=== PATIENT | male | born 1965 | race African-American/Black ===

== ENCOUNTER 2021-07-19 12:22 | Inpatient (IN) | payer OTHER ==
[2021-07-19 14:53] VITALS: BMI 26.6
[2021-07-19] MEDS ORDERED: LOPERAMIDE HCL 2 MG CAPSULE PO PRN (15:44)
[2021-07-19] MEDS ORDERED: METHOCARBAMOL 500 MG TABLET PO PRN (15:44)
[2021-07-19] MEDS ORDERED: BISMUTH SUBSALICYLATE 524 MG/30 ML PO PRN (15:44)
[2021-07-19] MEDS ORDERED: BENZOCAINE/MENTHOL (CHLORASEPTIC ) LOZENGE MM PRN (15:44)
[2021-07-19] MEDS ORDERED: ONDANSETRON *ODT* 4 MG TABLET SL PRN (15:44)
[2021-07-19] MEDS ORDERED: MAGNESIUM HYDROX 2400MG/30ML ORAL SUSPENSION 30 ML CUP PO PRN (15:44)
[2021-07-19] MEDS ORDERED: DICYCLOMINE HCL 10 MG CAPSULE PO PRN (15:44)
[2021-07-19] MEDS ORDERED: ACETAMINOPHEN 325 MG TABLET (FP) PO PRN (15:44)
[2021-07-19] MEDS ORDERED: MAGNESIUM CITRATE 300 ML BOTTLE PO PRN (15:44)
[2021-07-19] MEDS ORDERED: chlordiazePOXIDE HCL 25 MG CAPSULE PO PRN (15:44)
[2021-07-19] MEDS ORDERED: MAG HYDROX/AL HYDROX/SIMETH 30 ML UNIT-DOSE CUP PO PRN (15:44)
[2021-07-19] MEDS ORDERED: DIVALPROEX NA *ER* EXTEND REL 500 MG TABLET.SA (FP) PO ONE (17:26)
[2021-07-19] MEDS ORDERED: risperiDONE 2 MG TABLET PO ONE (17:26)
[2021-07-19] MEDS: chlordiazePOXIDE HCL 25 MG CAPSULE PO SCH ×2 (18:03→22:19)
[2021-07-19] MEDS: hydrOXYzine PAMOATE 25 MG CAPSULE (FP) PO SCH ×2 (18:03→22:19)
[2021-07-19] MEDS: THIAMINE HCL 100 MG TABLET (FP) PO SCH (22:19)
[2021-07-19] MEDS: MELATONIN 5 MG TABLETS PO SCH (22:19)
[2021-07-20] MEDS: chlordiazePOXIDE HCL 25 MG CAPSULE PO SCH ×4 (05:58→22:40)
[2021-07-20] MEDS: hydrOXYzine PAMOATE 25 MG CAPSULE (FP) PO SCH ×5 (06:00→22:40)
[2021-07-20] MEDS: ACETAMINOPHEN 325 MG TABLET (FP) PO PRN (07:28)
[2021-07-20] MEDS: PRENATAL VITAMINS W/ FOLIC ACID TABLET (FP) PO SCH (10:11)
[2021-07-20] MEDS: NICOTINE 21 MG/24 HOURS TOPICAL PATCH TD SCH (10:11)
[2021-07-20 10:32] LABS: URINE APPEARANCE CLEAR; URINE BILIRUBIN NEGATIVE (NEGATIVE); URINE COLOR YELLOW; URINE GLUCOSE (UA) NEGATIVE (NEGATIVE); URINE KETONE TRACE (NEGATIVE); URINE LEUK ESTERASE NEGATIVE (NEGATIVE); URINE NITRITE NEGATIVE (NEGATIVE); URINE PROTEIN NEGATIVE (NEGATIVE)
[2021-07-20] MEDS: risperiDONE 2 MG TABLET PO SCH ×2 (10:40→22:44)
[2021-07-20] MEDS: SERTRALINE HCL 50 MG TABLET (FP) PO SCH (10:40)
[2021-07-20 10:45] LABS: HEMATOCRIT 37.2 % (35.4-49); HEMOGLOBIN 11.9 GM/dL (11.7-16.9); MCH 30.1 pg (25.7-33.7); MEAN CELL VOLUME 94.2 fl (80-96); MEAN PLT VOLUME 10.2 fl (7.5-11.1); PLATELET COUNT 238 10^3/uL (134-434); RBC 3.95 M/mm3 (4.00-5.60); RDW 14.9 % (11.9-15.9); WHITE BLOOD COUNT 8.1 K/mm3 (4.0-10.0)
[2021-07-20 10:59] LABS: ALBUMIN 3.5 g/dl (3.4-5.0); BLOOD UREA NITROGEN 16.4 mg/dL (7-18); CALCIUM 8.8 mg/dL (8.5-10.1)
[2021-07-20 11:03] LABS: CREATININE 0.8 mg/dL (0.55-1.3)
[2021-07-20 11:04] LABS: BILIRUBIN,TOTAL 0.3 mg/dL (0.2-1); TOT PROT 7.1 g/dl (6.4-8.2)
[2021-07-20] MEDS: DIVALPROEX NA *ER* EXTEND REL 500 MG TABLET.SA (FP) PO SCH ×2 (11:48→22:45)
[2021-07-20] MEDS: GABAPENTIN 300 MG CAPSULE PO SCH ×2 (13:24→22:45)
[2021-07-20] MEDS: amLODIPine BESYLATE 10 MG TABLET (FP) PO SCH (13:24)
[2021-07-20] MEDS: IBUPROFEN 400 MG TABLET (FP) PO PRN (20:36)
[2021-07-20] MEDS: MELATONIN 5 MG TABLETS PO SCH (22:44)
[2021-07-20] MEDS: THIAMINE HCL 100 MG TABLET (FP) PO SCH (22:44)
[2021-07-21] MEDS: chlordiazePOXIDE HCL 25 MG CAPSULE PO SCH ×4 (05:42→22:11)
[2021-07-21] MEDS: GABAPENTIN 300 MG CAPSULE PO SCH ×3 (05:42→22:11)
[2021-07-21] MEDS: hydrOXYzine PAMOATE 25 MG CAPSULE (FP) PO SCH ×5 (05:44→22:11)
[2021-07-21] MEDS: IBUPROFEN 400 MG TABLET (FP) PO PRN (05:50)
[2021-07-21] MEDS: SERTRALINE HCL 50 MG TABLET (FP) PO SCH (10:24)
[2021-07-21] MEDS: risperiDONE 2 MG TABLET PO SCH ×2 (10:24→22:12)
[2021-07-21] MEDS: amLODIPine BESYLATE 10 MG TABLET (FP) PO SCH (10:24)
[2021-07-21] MEDS: PRENATAL VITAMINS W/ FOLIC ACID TABLET (FP) PO SCH (10:24)
[2021-07-21] MEDS: DIVALPROEX NA *ER* EXTEND REL 500 MG TABLET.SA (FP) PO SCH ×2 (10:24→22:13)
[2021-07-21] MEDS: NICOTINE 21 MG/24 HOURS TOPICAL PATCH TD SCH (10:25)
[2021-07-21] MEDS: MELATONIN 5 MG TABLETS PO SCH (22:11)
[2021-07-21] MEDS: THIAMINE HCL 100 MG TABLET (FP) PO SCH (22:12)
[2021-07-22] MEDS ORDERED: chlordiazePOXIDE HCL 10 MG CAPSULE PO PRN
[2021-07-22] MEDS: hydrOXYzine PAMOATE 25 MG CAPSULE (FP) PO SCH ×5 (05:39→23:09)
[2021-07-22] MEDS: GABAPENTIN 300 MG CAPSULE PO SCH ×3 (05:39→23:09)
[2021-07-22] MEDS: chlordiazePOXIDE HCL 10 MG CAPSULE PO SCH ×4 (05:39→23:11)
[2021-07-22] MEDS: IBUPROFEN 400 MG TABLET (FP) PO PRN ×2 (07:07→17:52)
[2021-07-22] MEDS: DIVALPROEX NA *ER* EXTEND REL 500 MG TABLET.SA (FP) PO SCH ×2 (10:11→23:11)
[2021-07-22] MEDS: NICOTINE 21 MG/24 HOURS TOPICAL PATCH TD SCH (10:12)
[2021-07-22] MEDS: SERTRALINE HCL 50 MG TABLET (FP) PO SCH (10:12)
[2021-07-22] MEDS: risperiDONE 2 MG TABLET PO SCH ×2 (10:12→23:09)
[2021-07-22] MEDS: PRENATAL VITAMINS W/ FOLIC ACID TABLET (FP) PO SCH (10:12)
[2021-07-22] MEDS: amLODIPine BESYLATE 10 MG TABLET (FP) PO SCH (10:12)
[2021-07-22] MEDS: ACETAMINOPHEN 325 MG TABLET (FP) PO PRN (11:52)
[2021-07-22] MEDS: MELATONIN 5 MG TABLETS PO SCH (23:09)
[2021-07-22] MEDS: THIAMINE HCL 100 MG TABLET (FP) PO SCH (23:10)
[2021-07-23] MEDS: hydrOXYzine PAMOATE 25 MG CAPSULE (FP) PO SCH ×5 (05:23→22:20)
[2021-07-23] MEDS: GABAPENTIN 300 MG CAPSULE PO SCH ×3 (05:23→22:20)
[2021-07-23] MEDS: chlordiazePOXIDE HCL 10 MG CAPSULE PO SCH ×2 (05:23→17:57)
[2021-07-23] MEDS ORDERED: NICOTINE POLACRILEX 4 MG GUM BUC PRN (09:42)
[2021-07-23] MEDS: SERTRALINE HCL 50 MG TABLET (FP) PO SCH (10:12)
[2021-07-23] MEDS: PRENATAL VITAMINS W/ FOLIC ACID TABLET (FP) PO SCH (10:12)
[2021-07-23] MEDS: risperiDONE 2 MG TABLET PO SCH ×2 (10:12→22:20)
[2021-07-23] MEDS: NICOTINE 21 MG/24 HOURS TOPICAL PATCH TD SCH (10:12)
[2021-07-23] MEDS: DIVALPROEX NA *ER* EXTEND REL 500 MG TABLET.SA (FP) PO SCH ×2 (10:12→22:21)
[2021-07-23] MEDS: amLODIPine BESYLATE 10 MG TABLET (FP) PO SCH (10:12)
[2021-07-23] MEDS: NICOTINE 10 MG CARTRIDGE (INHALER) IH PRN ×3 (10:14→22:21)
[2021-07-23] MEDS: IBUPROFEN 400 MG TABLET (FP) PO PRN (17:59)
[2021-07-23] MEDS: MELATONIN 5 MG TABLETS PO SCH (22:20)
[2021-07-23] MEDS: THIAMINE HCL 100 MG TABLET (FP) PO SCH (22:20)
[2021-07-24] MEDS ORDERED: chlordiazePOXIDE HCL 10 MG CAPSULE PO ONE (05:00)
[2021-07-24] MEDS: GABAPENTIN 300 MG CAPSULE PO SCH (05:44)
[2021-07-24] MEDS: hydrOXYzine PAMOATE 25 MG CAPSULE (FP) PO SCH ×2 (05:45→10:28)
[2021-07-24 09:23] VITALS: BP 128/84; PULSE 75; TEMP 96.9
[2021-07-24] MEDS: SERTRALINE HCL 50 MG TABLET (FP) PO SCH (10:26)
[2021-07-24] MEDS: DIVALPROEX NA *ER* EXTEND REL 500 MG TABLET.SA (FP) PO SCH (10:26)
[2021-07-24] MEDS: NICOTINE 21 MG/24 HOURS TOPICAL PATCH TD SCH (10:26)
[2021-07-24] MEDS: amLODIPine BESYLATE 10 MG TABLET (FP) PO SCH (10:26)
[2021-07-24] MEDS: risperiDONE 2 MG TABLET PO SCH (10:26)
[2021-07-24] MEDS: PRENATAL VITAMINS W/ FOLIC ACID TABLET (FP) PO SCH (10:27)
== END 2021-07-24 11:25 | disposition other institution (70) | DRG 774 ==
LOC: YASAS 12:22 → Y6N 16:56
PROVIDERS: ADMIT Allergy & Immunology; ATTEND Surgery
PROC: HZ2ZZZZ Detoxification Services for Substance Abuse Treatment (ICD-10-PCS; principal; 2021-07-20)
DX: F10.230 Alcohol dependence with withdrawal, uncomplicated (principal); F14.20 Cocaine dependence, uncomplicated; F15.10 Other stimulant abuse, uncomplicated; F17.213 Nicotine dependence, cigarettes, with withdrawal; F25.0 Schizoaffective disorder, bipolar type; F19.282 Other psychoactive substance dependence with psychoactive substance-induced sleep disorder; I10 Essential (primary) hypertension; M54.50 Low back pain, unspecified; G89.29 Other chronic pain
CPT/HCPCS: 36415; 71046-TC-FY; 80053; 80164; 81003; 85027; 86780; 93005; 93010; C9803-CS; U0003; U0005

== ENCOUNTER 2021-07-24 11:29 | Inpatient (IN) | payer OTHER ==
[2021-07-24] MEDS ORDERED: MAG HYDROX/AL HYDROX/SIMETH 30 ML UNIT-DOSE CUP PO PRN (11:57)
[2021-07-24] MEDS ORDERED: hydrOXYzine PAMOATE 25 MG CAPSULE (FP) PO PRN (11:57)
[2021-07-24] MEDS ORDERED: MAGNESIUM HYDROX 2400MG/30ML ORAL SUSPENSION 30 ML CUP PO PRN (11:57)
[2021-07-24] MEDS ORDERED: P-EPHED 60MG/TRIPROLIDI 2.5MG TABLET PO PRN (11:57)
[2021-07-24] MEDS ORDERED: MAGNESIUM CITRATE 300 ML BOTTLE PO PRN (11:57)
[2021-07-24] MEDS ORDERED: guaiFENesin 200 MG/10 ML 10 ML UNIT-DOSE CUPS PO PRN (11:57)
[2021-07-24] MEDS ORDERED: LOPERAMIDE HCL 2 MG CAPSULE PO PRN (11:57)
[2021-07-24] MEDS ORDERED: ACETAMINOPHEN 325 MG TABLET (FP) PO PRN (11:57)
[2021-07-24] MEDS: GABAPENTIN 300 MG CAPSULE PO SCH ×2 (13:30→21:36)
[2021-07-24] MEDS: NICOTINE 10 MG CARTRIDGE (INHALER) IH PRN ×2 (13:31→21:38)
[2021-07-24] MEDS: NICOTINE POLACRILEX 4 MG GUM BUC PRN ×3 (16:18→23:45)
[2021-07-24] MEDS: MELATONIN 5 MG TABLETS PO SCH (21:36)
[2021-07-24] MEDS: DIVALPROEX NA *ER* EXTEND REL 500 MG TABLET.SA (FP) PO SCH (21:37)
[2021-07-24] MEDS: risperiDONE 2 MG TABLET PO SCH (21:38)
[2021-07-24] MEDS: THIAMINE HCL 100 MG TABLET (FP) PO SCH (21:39)
[2021-07-25] MEDS: GABAPENTIN 300 MG CAPSULE PO SCH ×3 (06:32→21:08)
[2021-07-25] MEDS: NICOTINE 10 MG CARTRIDGE (INHALER) IH PRN ×2 (06:33→12:25)
[2021-07-25] MEDS: NICOTINE POLACRILEX 4 MG GUM BUC PRN ×3 (06:54→18:03)
[2021-07-25] MEDS: IBUPROFEN 400 MG TABLET (FP) PO PRN (08:45)
[2021-07-25] MEDS: amLODIPine BESYLATE 10 MG TABLET (FP) PO SCH (09:46)
[2021-07-25] MEDS: SERTRALINE HCL 50 MG TABLET (FP) PO SCH (09:46)
[2021-07-25] MEDS: DIVALPROEX NA *ER* EXTEND REL 500 MG TABLET.SA (FP) PO SCH ×2 (09:46→21:08)
[2021-07-25] MEDS: risperiDONE 2 MG TABLET PO SCH ×2 (09:46→21:08)
[2021-07-25] MEDS: NICOTINE 21 MG/24 HOURS TOPICAL PATCH TD SCH (09:47)
[2021-07-25] MEDS: PRENATAL VITAMINS W/ FOLIC ACID TABLET (FP) PO SCH (09:47)
[2021-07-25] MEDS ORDERED: NICOTINE 7 MG/24 HOURS TOPICAL PATCH TD SCH (10:00)
[2021-07-25] MEDS: MELATONIN 5 MG TABLETS PO SCH (21:07)
[2021-07-25] MEDS: THIAMINE HCL 100 MG TABLET (FP) PO SCH (21:07)
[2021-07-26] MEDS: GABAPENTIN 300 MG CAPSULE PO SCH ×3 (06:25→21:17)
[2021-07-26] MEDS: NICOTINE POLACRILEX 4 MG GUM BUC PRN ×2 (06:26→12:49)
[2021-07-26] MEDS: NICOTINE 10 MG CARTRIDGE (INHALER) IH PRN ×2 (06:26→21:17)
[2021-07-26] MEDS: PRENATAL VITAMINS W/ FOLIC ACID TABLET (FP) PO SCH (09:41)
[2021-07-26] MEDS: risperiDONE 2 MG TABLET PO SCH ×2 (09:42→21:17)
[2021-07-26] MEDS: NICOTINE 21 MG/24 HOURS TOPICAL PATCH TD SCH (09:42)
[2021-07-26] MEDS: amLODIPine BESYLATE 10 MG TABLET (FP) PO SCH (09:42)
[2021-07-26] MEDS: SERTRALINE HCL 50 MG TABLET (FP) PO SCH (09:43)
[2021-07-26] MEDS: DIVALPROEX NA *ER* EXTEND REL 500 MG TABLET.SA (FP) PO SCH ×2 (09:44→21:17)
[2021-07-26] MEDS: IBUPROFEN 400 MG TABLET (FP) PO PRN (16:45)
[2021-07-26] MEDS: MELATONIN 5 MG TABLETS PO SCH (21:16)
[2021-07-26] MEDS: THIAMINE HCL 100 MG TABLET (FP) PO SCH (21:16)
[2021-07-27] MEDS: GABAPENTIN 300 MG CAPSULE PO SCH ×3 (06:23→21:02)
[2021-07-27] MEDS: NICOTINE 10 MG CARTRIDGE (INHALER) IH PRN (06:24)
[2021-07-27] MEDS: NICOTINE POLACRILEX 4 MG GUM BUC PRN ×2 (06:24→13:53)
[2021-07-27] MEDS: PRENATAL VITAMINS W/ FOLIC ACID TABLET (FP) PO SCH (09:56)
[2021-07-27] MEDS: SERTRALINE HCL 50 MG TABLET (FP) PO SCH (09:56)
[2021-07-27] MEDS: NICOTINE 21 MG/24 HOURS TOPICAL PATCH TD SCH (09:56)
[2021-07-27] MEDS: risperiDONE 2 MG TABLET PO SCH ×2 (09:57→21:02)
[2021-07-27] MEDS: amLODIPine BESYLATE 10 MG TABLET (FP) PO SCH (09:57)
[2021-07-27] MEDS: DIVALPROEX NA *ER* EXTEND REL 500 MG TABLET.SA (FP) PO SCH ×2 (09:57→21:02)
[2021-07-27] MEDS: THIAMINE HCL 100 MG TABLET (FP) PO SCH (21:01)
[2021-07-27] MEDS: MELATONIN 5 MG TABLETS PO SCH (21:01)
[2021-07-28 06:59] VITALS: TEMP 97.5
[2021-07-28] MEDS: GABAPENTIN 300 MG CAPSULE PO SCH ×3 (07:19→21:11)
[2021-07-28] MEDS: NICOTINE POLACRILEX 4 MG GUM BUC PRN ×2 (07:20→13:19)
[2021-07-28] MEDS: NICOTINE 10 MG CARTRIDGE (INHALER) IH PRN ×2 (07:20→16:48)
[2021-07-28] MEDS: NICOTINE 21 MG/24 HOURS TOPICAL PATCH TD SCH (10:05)
[2021-07-28] MEDS: risperiDONE 2 MG TABLET PO SCH ×2 (10:05→21:11)
[2021-07-28] MEDS: amLODIPine BESYLATE 10 MG TABLET (FP) PO SCH (10:05)
[2021-07-28] MEDS: DIVALPROEX NA *ER* EXTEND REL 500 MG TABLET.SA (FP) PO SCH ×2 (10:05→23:36)
[2021-07-28] MEDS: SERTRALINE HCL 50 MG TABLET (FP) PO SCH (10:05)
[2021-07-28] MEDS: PRENATAL VITAMINS W/ FOLIC ACID TABLET (FP) PO SCH (10:05)
[2021-07-28] MEDS: MELATONIN 5 MG TABLETS PO SCH (21:11)
[2021-07-28] MEDS: THIAMINE HCL 100 MG TABLET (FP) PO SCH (21:11)
[2021-07-29] MEDS: GABAPENTIN 300 MG CAPSULE PO SCH ×3 (06:29→21:17)
[2021-07-29] MEDS: NICOTINE 21 MG/24 HOURS TOPICAL PATCH TD SCH (09:29)
[2021-07-29] MEDS: amLODIPine BESYLATE 10 MG TABLET (FP) PO SCH (09:30)
[2021-07-29] MEDS: DIVALPROEX NA *ER* EXTEND REL 500 MG TABLET.SA (FP) PO SCH ×2 (09:30→21:18)
[2021-07-29] MEDS: risperiDONE 2 MG TABLET PO SCH ×2 (09:30→21:17)
[2021-07-29] MEDS: SERTRALINE HCL 50 MG TABLET (FP) PO SCH (09:31)
[2021-07-29] MEDS: PRENATAL VITAMINS W/ FOLIC ACID TABLET (FP) PO SCH (09:31)
[2021-07-29] MEDS: NICOTINE 10 MG CARTRIDGE (INHALER) IH PRN ×2 (12:04→15:50)
[2021-07-29] MEDS: NICOTINE POLACRILEX 4 MG GUM BUC PRN ×3 (13:05→21:18)
[2021-07-29] MEDS: THIAMINE HCL 100 MG TABLET (FP) PO SCH (21:17)
[2021-07-29] MEDS: MELATONIN 5 MG TABLETS PO SCH (21:18)
[2021-07-30] MEDS: GABAPENTIN 300 MG CAPSULE PO SCH ×3 (06:12→21:14)
[2021-07-30] MEDS: NICOTINE POLACRILEX 4 MG GUM BUC PRN ×2 (06:13→13:29)
[2021-07-30] MEDS: NICOTINE 10 MG CARTRIDGE (INHALER) IH PRN ×2 (08:40→16:17)
[2021-07-30 09:15] VITALS: BP 132/87; PULSE 87
[2021-07-30] MEDS: PRENATAL VITAMINS W/ FOLIC ACID TABLET (FP) PO SCH (10:03)
[2021-07-30] MEDS: NICOTINE 21 MG/24 HOURS TOPICAL PATCH TD SCH (10:03)
[2021-07-30] MEDS: SERTRALINE HCL 50 MG TABLET (FP) PO SCH (10:04)
[2021-07-30] MEDS: DIVALPROEX NA *ER* EXTEND REL 500 MG TABLET.SA (FP) PO SCH ×2 (10:04→21:13)
[2021-07-30] MEDS: amLODIPine BESYLATE 10 MG TABLET (FP) PO SCH (10:04)
[2021-07-30] MEDS: risperiDONE 2 MG TABLET PO SCH ×2 (10:04→21:14)
[2021-07-30] MEDS: MELATONIN 5 MG TABLETS PO SCH (21:13)
[2021-07-30] MEDS: THIAMINE HCL 100 MG TABLET (FP) PO SCH (21:13)
== END 2021-07-31 02:20 | disposition left against medical advice (07) | DRG 770 ==
LOC: YASAS 11:29 → Y3E 11:30
PROVIDERS: ADMIT Allergy & Immunology; ATTEND Psychiatry & Neurology Pain Medicine
PROC: HZ42ZZZ Group Counseling for Substance Abuse Treatment, Cognitive-Behavioral (ICD-10-PCS; principal; 2021-07-24)
DX: F10.20 Alcohol dependence, uncomplicated (principal); F14.20 Cocaine dependence, uncomplicated; F15.20 Other stimulant dependence, uncomplicated; F17.210 Nicotine dependence, cigarettes, uncomplicated; F25.0 Schizoaffective disorder, bipolar type; I10 Essential (primary) hypertension

== ENCOUNTER 2021-09-02 19:21 | Inpatient (IN) | payer OTHER ==
[2021-09-02 20:09] VITALS: BMI 27.3
[2021-09-02] MEDS ORDERED: P-EPHED 60MG/TRIPROLIDI 2.5MG TABLET PO PRN (20:42)
[2021-09-02] MEDS ORDERED: LOPERAMIDE HCL 2 MG CAPSULE PO PRN (20:42)
[2021-09-02] MEDS ORDERED: MAGNESIUM CITRATE 300 ML BOTTLE PO PRN (20:42)
[2021-09-02] MEDS ORDERED: ONDANSETRON *ODT* 4 MG TABLET SL PRN (20:42)
[2021-09-02] MEDS ORDERED: guaiFENesin 200 MG/10 ML 10 ML UNIT-DOSE CUPS PO PRN (20:42)
[2021-09-02] MEDS ORDERED: MAGNESIUM HYDROX 2400MG/30ML ORAL SUSPENSION 30 ML CUP PO PRN (20:42)
[2021-09-02] MEDS ORDERED: IBUPROFEN 400 MG TABLET (FP) PO PRN (20:42)
[2021-09-02] MEDS ORDERED: BENZOCAINE/MENTHOL (CHLORASEPTIC ) LOZENGE MM PRN (20:42)
[2021-09-02] MEDS ORDERED: DICYCLOMINE HCL 10 MG CAPSULE PO PRN (20:42)
[2021-09-02] MEDS ORDERED: chlordiazePOXIDE HCL 25 MG CAPSULE PO PRN (20:42)
[2021-09-02] MEDS ORDERED: NICOTINE POLACRILEX 2 MG GUM BUC PRN (20:42)
[2021-09-02] MEDS ORDERED: MAG HYDROX/AL HYDROX/SIMETH 30 ML UNIT-DOSE CUP PO PRN (20:42)
[2021-09-02] MEDS ORDERED: ACETAMINOPHEN 325 MG TABLET (FP) PO PRN ×2 (20:42)
[2021-09-02] MEDS: MELATONIN 5 MG TABLETS PO SCH (21:43)
[2021-09-02] MEDS: hydrOXYzine PAMOATE 25 MG CAPSULE (FP) PO PRN (21:43)
[2021-09-02] MEDS: METHOCARBAMOL 500 MG TABLET PO PRN (21:43)
[2021-09-02] MEDS: THIAMINE HCL 100 MG TABLET (FP) PO SCH (21:43)
[2021-09-02] MEDS: amLODIPine BESYLATE 10 MG TABLET (FP) PO SCH (21:43)
[2021-09-02] MEDS: chlordiazePOXIDE HCL 25 MG CAPSULE PO SCH (22:30)
[2021-09-03] MEDS: hydrOXYzine PAMOATE 25 MG CAPSULE (FP) PO PRN (05:35)
[2021-09-03] MEDS: chlordiazePOXIDE HCL 25 MG CAPSULE PO SCH ×4 (05:35→22:31)
[2021-09-03 09:04] LABS: HEMATOCRIT 38.5 % (35.4-49); HEMOGLOBIN 12.8 GM/dL (11.7-16.9); MCH 30.5 pg (25.7-33.7); MCHC 33.4 g/dl (32.0-35.9); MEAN CELL VOLUME 91.6 fl (80-96); MEAN PLT VOLUME 8.7 fl (7.5-11.1); PLATELET COUNT 252 10^3/uL (134-434); RDW 15.1 % (11.9-15.9); WHITE BLOOD COUNT 5.3 K/mm3 (4.0-10.0)
[2021-09-03 09:25] LABS: BLOOD UREA NITROGEN 5.4 mg/dL (7-18); CALCIUM 8.8 mg/dL (8.5-10.1)
[2021-09-03 09:26] LABS: ALBUMIN 3.8 g/dl (3.4-5.0)
[2021-09-03 09:29] LABS: CREATININE 0.8 mg/dL (0.55-1.3)
[2021-09-03 09:30] LABS: BILIRUBIN,TOTAL 0.9 mg/dL (0.2-1); TOT PROT 8.1 g/dl (6.4-8.2)
[2021-09-03] MEDS ORDERED: NICOTINE 21 MG/24 HOURS TOPICAL PATCH TD SCH (10:00)
[2021-09-03] MEDS ORDERED: NICOTINE 14 MG/24 HOURS TOPICAL PATCH TD SCH (10:00)
[2021-09-03] MEDS: PRENATAL VITAMINS W/ FOLIC ACID TABLET (FP) PO SCH (10:11)
[2021-09-03] MEDS: amLODIPine BESYLATE 10 MG TABLET (FP) PO SCH (10:11)
[2021-09-03] MEDS: risperiDONE 2 MG TABLET PO SCH ×2 (12:49→22:31)
[2021-09-03] MEDS: NICOTINE 10 MG CARTRIDGE (INHALER) IH PRN ×2 (12:49→17:39)
[2021-09-03] MEDS: DIVALPROEX SODIUM 250 MG TABLET E.C. PO SCH ×2 (12:49→22:31)
[2021-09-03] MEDS: SERTRALINE HCL 50 MG TABLET (FP) PO SCH (12:49)
[2021-09-03] MEDS: GABAPENTIN 300 MG CAPSULE PO SCH ×2 (15:26→22:32)
[2021-09-03] MEDS: BISMUTH SUBSALICYLATE 524 MG/30 ML PO PRN (17:40)
[2021-09-03] MEDS: MELATONIN 5 MG TABLETS PO SCH (22:32)
[2021-09-03] MEDS: THIAMINE HCL 100 MG TABLET (FP) PO SCH (22:32)
[2021-09-04] MEDS: GABAPENTIN 300 MG CAPSULE PO SCH ×3 (07:22→22:17)
[2021-09-04] MEDS: chlordiazePOXIDE HCL 25 MG CAPSULE PO SCH ×4 (07:22→22:17)
[2021-09-04] MEDS: SERTRALINE HCL 50 MG TABLET (FP) PO SCH (10:17)
[2021-09-04] MEDS: PRENATAL VITAMINS W/ FOLIC ACID TABLET (FP) PO SCH (10:17)
[2021-09-04] MEDS: DIVALPROEX SODIUM 250 MG TABLET E.C. PO SCH ×2 (10:17→22:16)
[2021-09-04] MEDS: amLODIPine BESYLATE 10 MG TABLET (FP) PO SCH (10:17)
[2021-09-04] MEDS: risperiDONE 2 MG TABLET PO SCH ×2 (10:17→22:17)
[2021-09-04] MEDS: NICOTINE 10 MG CARTRIDGE (INHALER) IH PRN ×2 (10:19→22:18)
[2021-09-04] MEDS: hydrOXYzine PAMOATE 25 MG CAPSULE (FP) PO PRN (17:02)
[2021-09-04] MEDS: BISMUTH SUBSALICYLATE 524 MG/30 ML PO PRN (17:32)
[2021-09-04] MEDS: MELATONIN 5 MG TABLETS PO SCH (22:16)
[2021-09-04] MEDS: THIAMINE HCL 100 MG TABLET (FP) PO SCH (22:17)
[2021-09-05] MEDS ORDERED: chlordiazePOXIDE HCL 10 MG CAPSULE PO PRN
[2021-09-05] MEDS: chlordiazePOXIDE HCL 10 MG CAPSULE PO SCH ×4 (05:29→23:26)
[2021-09-05] MEDS: GABAPENTIN 300 MG CAPSULE PO SCH ×3 (05:29→23:24)
[2021-09-05] MEDS: DIVALPROEX SODIUM 250 MG TABLET E.C. PO SCH ×2 (10:15→23:25)
[2021-09-05] MEDS: PRENATAL VITAMINS W/ FOLIC ACID TABLET (FP) PO SCH (10:15)
[2021-09-05] MEDS: hydrOXYzine PAMOATE 25 MG CAPSULE (FP) PO PRN (10:15)
[2021-09-05] MEDS: amLODIPine BESYLATE 10 MG TABLET (FP) PO SCH (10:15)
[2021-09-05] MEDS: risperiDONE 2 MG TABLET PO SCH ×2 (10:16→23:24)
[2021-09-05] MEDS: SERTRALINE HCL 50 MG TABLET (FP) PO SCH (10:17)
[2021-09-05] MEDS: IBUPROFEN 600 MG TABLET (FP) PO PRN (18:33)
[2021-09-05] MEDS: NICOTINE 10 MG CARTRIDGE (INHALER) IH PRN (18:34)
[2021-09-05] MEDS: MELATONIN 5 MG TABLETS PO SCH (23:24)
[2021-09-05] MEDS: METHOCARBAMOL 500 MG TABLET PO PRN (23:25)
[2021-09-05] MEDS: THIAMINE HCL 100 MG TABLET (FP) PO SCH (23:25)
[2021-09-06] MEDS ORDERED: chlordiazePOXIDE HCL 10 MG CAPSULE PO SCH (05:00)
[2021-09-06] MEDS: GABAPENTIN 300 MG CAPSULE PO SCH ×2 (05:29→13:56)
[2021-09-06] MEDS: NICOTINE 10 MG CARTRIDGE (INHALER) IH PRN ×2 (05:29→10:04)
[2021-09-06] MEDS: METHOCARBAMOL 500 MG TABLET PO PRN (06:59)
[2021-09-06] MEDS: IBUPROFEN 600 MG TABLET (FP) PO PRN (06:59)
[2021-09-06] MEDS: SERTRALINE HCL 50 MG TABLET (FP) PO SCH (10:03)
[2021-09-06] MEDS: DIVALPROEX SODIUM 250 MG TABLET E.C. PO SCH (10:03)
[2021-09-06] MEDS: risperiDONE 2 MG TABLET PO SCH (10:03)
[2021-09-06] MEDS: amLODIPine BESYLATE 10 MG TABLET (FP) PO SCH (10:03)
[2021-09-06] MEDS: PRENATAL VITAMINS W/ FOLIC ACID TABLET (FP) PO SCH (10:03)
[2021-09-06 12:45] VITALS: BP 145/93; PULSE 90; TEMP 97.3
[2021-09-07] MEDS ORDERED: chlordiazePOXIDE HCL 10 MG CAPSULE PO ONE (05:00)
== END 2021-09-06 14:15 | disposition other institution (70) | DRG 774 ==
LOC: YASAS 19:21 → Y3N 21:11
PROVIDERS: ADMIT Allergy & Immunology; ATTEND Surgery
PROC: HZ2ZZZZ Detoxification Services for Substance Abuse Treatment (ICD-10-PCS; principal; 2021-09-02)
DX: F10.230 Alcohol dependence with withdrawal, uncomplicated (principal); F14.20 Cocaine dependence, uncomplicated; F17.210 Nicotine dependence, cigarettes, uncomplicated; F25.0 Schizoaffective disorder, bipolar type; F10.280 Alcohol dependence with alcohol-induced anxiety disorder; F10.282 Alcohol dependence with alcohol-induced sleep disorder; F10.24 Alcohol dependence with alcohol-induced mood disorder; I10 Essential (primary) hypertension; M54.50 Low back pain, unspecified; G89.29 Other chronic pain; Z91.81 History of falling; Z86.19 Personal history of other infectious and parasitic diseases; Z86.11 Personal history of tuberculosis; Z91.14 Patient's other noncompliance with medication regimen
CPT/HCPCS: 36415; 80053; 85027; 86780; C9803-CS; U0003; U0005

== ENCOUNTER 2021-11-01 14:13 | Inpatient (IN) | payer OTHER ==
[2021-11-01 15:40] VITALS: BMI 25.9
[2021-11-01] MEDS ORDERED: MAG HYDROX/AL HYDROX/SIMETH 30 ML UNIT-DOSE CUP PO PRN (16:53)
[2021-11-01] MEDS ORDERED: MAGNESIUM CITRATE 300 ML BOTTLE PO PRN (16:53)
[2021-11-01] MEDS ORDERED: BISMUTH SUBSALICYLATE 524 MG/30 ML PO PRN (16:53)
[2021-11-01] MEDS ORDERED: IBUPROFEN 400 MG TABLET (FP) PO PRN (16:53)
[2021-11-01] MEDS ORDERED: LOPERAMIDE HCL 2 MG CAPSULE PO PRN (16:53)
[2021-11-01] MEDS ORDERED: ACETAMINOPHEN 325 MG TABLET (FP) PO PRN ×2 (16:53)
[2021-11-01] MEDS ORDERED: BENZOCAINE/MENTHOL (CHLORASEPTIC ) LOZENGE MM PRN (16:53)
[2021-11-01] MEDS ORDERED: DICYCLOMINE HCL 10 MG CAPSULE PO PRN (16:53)
[2021-11-01] MEDS ORDERED: ONDANSETRON *ODT* 4 MG TABLET SL PRN (16:53)
[2021-11-01] MEDS ORDERED: MAGNESIUM HYDROX 2400MG/30ML ORAL SUSPENSION 30 ML CUP PO PRN (16:53)
[2021-11-01] MEDS: chlordiazePOXIDE HCL 25 MG CAPSULE PO PRN ×2 (18:37→22:33)
[2021-11-01] MEDS: hydrOXYzine PAMOATE 25 MG CAPSULE (FP) PO SCH ×2 (18:37→22:32)
[2021-11-01] MEDS: NICOTINE POLACRILEX 4 MG GUM BUC PRN ×2 (18:43→22:35)
[2021-11-01] MEDS: THIAMINE HCL 100 MG TABLET (FP) PO SCH (22:32)
[2021-11-01] MEDS: MELATONIN 5 MG TABLETS PO SCH (22:33)
[2021-11-01] MEDS: chlordiazePOXIDE HCL 25 MG CAPSULE PO SCH (23:21)
[2021-11-02] MEDS: chlordiazePOXIDE HCL 25 MG CAPSULE PO SCH ×4 (04:55→22:13)
[2021-11-02] MEDS: hydrOXYzine PAMOATE 25 MG CAPSULE (FP) PO SCH ×5 (05:04→22:14)
[2021-11-02] MEDS: NICOTINE 10 MG CARTRIDGE (INHALER) IH PRN ×2 (05:46→18:02)
[2021-11-02] MEDS: IBUPROFEN 600 MG TABLET (FP) PO PRN (07:49)
[2021-11-02 09:47] LABS: CALCIUM 9.1 mg/dL (8.5-10.1)
[2021-11-02 09:48] LABS: ALBUMIN 3.9 g/dl (3.4-5.0); BLOOD UREA NITROGEN 17.1 mg/dL (7-18)
[2021-11-02 09:51] LABS: CREATININE 0.8 mg/dL (0.55-1.3)
[2021-11-02 09:52] LABS: BILIRUBIN,TOTAL 0.2 mg/dL (0.2-1); TOT PROT 7.4 g/dl (6.4-8.2)
[2021-11-02 09:56] LABS: HEMATOCRIT 37.5 % (35.4-49); HEMOGLOBIN 12.1 GM/dL (11.7-16.9); MCH 30.5 pg (25.7-33.7); MCHC 32.2 g/dl (32.0-35.9); MEAN CELL VOLUME 94.6 fl (80-96); MEAN PLT VOLUME 10.1 fl (7.5-11.1); PLATELET COUNT 323 10^3/uL (134-434); RBC 3.96 M/mm3 (4.00-5.60); RDW 16.1 % (11.9-15.9)
[2021-11-02] MEDS: METHOCARBAMOL 500 MG TABLET PO PRN (10:23)
[2021-11-02] MEDS: PRENATAL VITAMINS W/ FOLIC ACID TABLET (FP) PO SCH (10:23)
[2021-11-02] MEDS: amLODIPine BESYLATE 10 MG TABLET (FP) PO SCH (10:24)
[2021-11-02] MEDS: risperiDONE 2 MG TABLET PO SCH ×2 (10:25→22:12)
[2021-11-02] MEDS: DIVALPROEX NA *ER* EXTEND REL 500 MG TABLET.SA (FP) PO SCH ×2 (10:27→22:14)
[2021-11-02] MEDS: SERTRALINE HCL 50 MG TABLET (FP) PO SCH (10:27)
[2021-11-02] MEDS: NICOTINE 14 MG/24 HOURS TOPICAL PATCH TD SCH (10:28)
[2021-11-02] MEDS: NICOTINE POLACRILEX 4 MG GUM BUC PRN ×2 (11:00→19:56)
[2021-11-02] MEDS: GABAPENTIN 300 MG CAPSULE PO SCH ×2 (13:03→22:12)
[2021-11-02] MEDS: THIAMINE HCL 100 MG TABLET (FP) PO SCH (22:12)
[2021-11-02] MEDS: MELATONIN 5 MG TABLETS PO SCH (22:14)
[2021-11-03] MEDS: chlordiazePOXIDE HCL 25 MG CAPSULE PO SCH ×4 (05:29→22:22)
[2021-11-03] MEDS: hydrOXYzine PAMOATE 25 MG CAPSULE (FP) PO SCH ×5 (05:29→22:22)
[2021-11-03] MEDS: GABAPENTIN 300 MG CAPSULE PO SCH ×3 (05:29→22:21)
[2021-11-03] MEDS: NICOTINE POLACRILEX 4 MG GUM BUC PRN ×4 (06:47→20:54)
[2021-11-03] MEDS: IBUPROFEN 600 MG TABLET (FP) PO PRN (07:51)
[2021-11-03] MEDS: PRENATAL VITAMINS W/ FOLIC ACID TABLET (FP) PO SCH (10:18)
[2021-11-03] MEDS: amLODIPine BESYLATE 10 MG TABLET (FP) PO SCH (10:19)
[2021-11-03] MEDS: SERTRALINE HCL 50 MG TABLET (FP) PO SCH (10:19)
[2021-11-03] MEDS: risperiDONE 2 MG TABLET PO SCH ×2 (10:19→22:21)
[2021-11-03] MEDS: DIVALPROEX NA *ER* EXTEND REL 500 MG TABLET.SA (FP) PO SCH ×2 (10:20→22:22)
[2021-11-03] MEDS: NICOTINE 14 MG/24 HOURS TOPICAL PATCH TD SCH (10:20)
[2021-11-03] MEDS: NICOTINE 10 MG CARTRIDGE (INHALER) IH PRN ×2 (10:21→22:33)
[2021-11-03] MEDS: MELATONIN 5 MG TABLETS PO SCH (22:22)
[2021-11-03] MEDS: THIAMINE HCL 100 MG TABLET (FP) PO SCH (22:22)
[2021-11-04] MEDS ORDERED: chlordiazePOXIDE HCL 10 MG CAPSULE PO PRN
[2021-11-04] MEDS: NICOTINE POLACRILEX 4 MG GUM BUC PRN ×4 (03:38→18:10)
[2021-11-04] MEDS: IBUPROFEN 600 MG TABLET (FP) PO PRN (05:08)
[2021-11-04] MEDS: METHOCARBAMOL 500 MG TABLET PO PRN ×2 (05:08→10:12)
[2021-11-04] MEDS: hydrOXYzine PAMOATE 25 MG CAPSULE (FP) PO SCH ×5 (05:10→22:19)
[2021-11-04] MEDS: GABAPENTIN 300 MG CAPSULE PO SCH ×3 (05:10→22:18)
[2021-11-04] MEDS: chlordiazePOXIDE HCL 10 MG CAPSULE PO SCH ×4 (05:10→22:18)
[2021-11-04] MEDS: DIVALPROEX NA *ER* EXTEND REL 500 MG TABLET.SA (FP) PO SCH ×2 (10:09→22:19)
[2021-11-04] MEDS: risperiDONE 2 MG TABLET PO SCH ×2 (10:10→22:18)
[2021-11-04] MEDS: SERTRALINE HCL 50 MG TABLET (FP) PO SCH (10:10)
[2021-11-04] MEDS: PRENATAL VITAMINS W/ FOLIC ACID TABLET (FP) PO SCH (10:10)
[2021-11-04] MEDS: amLODIPine BESYLATE 10 MG TABLET (FP) PO SCH (10:10)
[2021-11-04] MEDS: NICOTINE 14 MG/24 HOURS TOPICAL PATCH TD SCH (11:10)
[2021-11-04] MEDS: THIAMINE HCL 100 MG TABLET (FP) PO SCH (22:18)
[2021-11-04] MEDS: MELATONIN 5 MG TABLETS PO SCH (22:19)
[2021-11-05] MEDS: chlordiazePOXIDE HCL 10 MG CAPSULE PO SCH ×3 (05:30→17:21)
[2021-11-05] MEDS: hydrOXYzine PAMOATE 25 MG CAPSULE (FP) PO SCH ×4 (05:30→17:17)
[2021-11-05] MEDS: GABAPENTIN 300 MG CAPSULE PO SCH ×2 (05:30→12:59)
[2021-11-05] MEDS: PRENATAL VITAMINS W/ FOLIC ACID TABLET (FP) PO SCH (10:25)
[2021-11-05] MEDS: NICOTINE 14 MG/24 HOURS TOPICAL PATCH TD SCH (10:26)
[2021-11-05] MEDS: amLODIPine BESYLATE 10 MG TABLET (FP) PO SCH (10:26)
[2021-11-05] MEDS: DIVALPROEX NA *ER* EXTEND REL 500 MG TABLET.SA (FP) PO SCH (10:26)
[2021-11-05] MEDS: risperiDONE 2 MG TABLET PO SCH (10:26)
[2021-11-05] MEDS: SERTRALINE HCL 50 MG TABLET (FP) PO SCH (10:26)
[2021-11-05] MEDS: NICOTINE POLACRILEX 4 MG GUM BUC PRN ×3 (10:27→19:15)
[2021-11-05] MEDS: IBUPROFEN 600 MG TABLET (FP) PO PRN (12:59)
[2021-11-05] MEDS: METHOCARBAMOL 500 MG TABLET PO PRN (12:59)
[2021-11-05 18:09] VITALS: RESP 18
[2021-11-05 21:12] VITALS: BP 114/72; PULSE 91; TEMP 97.7
[2021-11-06] MEDS ORDERED: chlordiazePOXIDE HCL 10 MG CAPSULE PO ONE (05:00)
== END 2021-11-05 21:25 | disposition left against medical advice (07) | DRG 770 ==
LOC: YASAS 14:13 → Y6N 18:06
PROVIDERS: ADMIT Allergy & Immunology; ATTEND Surgery
PROC: HZ2ZZZZ Detoxification Services for Substance Abuse Treatment (ICD-10-PCS; principal; 2021-11-01)
DX: F10.230 Alcohol dependence with withdrawal, uncomplicated (principal); F14.20 Cocaine dependence, uncomplicated; F15.10 Other stimulant abuse, uncomplicated; F17.210 Nicotine dependence, cigarettes, uncomplicated; F25.0 Schizoaffective disorder, bipolar type; F10.282 Alcohol dependence with alcohol-induced sleep disorder; F10.280 Alcohol dependence with alcohol-induced anxiety disorder; Z86.19 Personal history of other infectious and parasitic diseases; Z91.14 Patient's other noncompliance with medication regimen; Z86.11 Personal history of tuberculosis; Z91.81 History of falling; Z59.00 Homelessness unspecified
CPT/HCPCS: 36415; 80053; 85027; 86780; 87811; C9803-CS; U0003; U0005

== ENCOUNTER 2022-01-15 10:49 | Inpatient (IN) | payer OTHER ==
[2022-01-15 11:07] VITALS: BMI 27.2
[2022-01-15] MEDS ORDERED: BISMUTH SUBSALICYLATE 262 MG/15 ML BTL PO PRN (11:50)
[2022-01-15] MEDS ORDERED: POLYETHYLENE GLYCOL (HEALTHYLAX) 3350 17 GM PACKET PO PRN (11:50)
[2022-01-15] MEDS ORDERED: ONDANSETRON *ODT* 4 MG TABLET SL PRN (11:50)
[2022-01-15] MEDS ORDERED: MAGNESIUM HYDROX 2400MG/30ML ORAL SUSPENSION 30 ML CUP PO PRN (11:50)
[2022-01-15] MEDS ORDERED: BENZOCAINE/MENTHOL (CHLORASEPTIC ) LOZENGE MM PRN (11:50)
[2022-01-15] MEDS ORDERED: LOPERAMIDE HCL 2 MG CAPSULE PO PRN (11:50)
[2022-01-15] MEDS ORDERED: DICYCLOMINE HCL 10 MG CAPSULE PO PRN (11:50)
[2022-01-15] MEDS ORDERED: MAG HYDROX/AL HYDROX/SIMETH 30 ML UNIT-DOSE CUP PO PRN (11:50)
[2022-01-15] MEDS ORDERED: ACETAMINOPHEN 325 MG TABLET (FP) PO PRN ×2 (11:50)
[2022-01-15] MEDS ORDERED: NALOXONE HCL (KLOXXADO) 8 MG SPRAY NS PRN (11:50)
[2022-01-15] MEDS ORDERED: IBUPROFEN 400 MG TABLET (FP) PO PRN (11:50)
[2022-01-15] MEDS: NICOTINE 10 MG CARTRIDGE (INHALER) IH PRN ×2 (14:49→19:33)
[2022-01-15] MEDS: amLODIPine BESYLATE 10 MG TABLET (FP) PO SCH (14:50)
[2022-01-15] MEDS: PRENATAL VITAMINS W/ FOLIC ACID TABLET (FP) PO SCH (14:50)
[2022-01-15] MEDS: METHOCARBAMOL 500 MG TABLET PO PRN (15:05)
[2022-01-15] MEDS: IBUPROFEN 600 MG TABLET (FP) PO PRN (15:05)
[2022-01-15 16:03] LABS: HEMATOCRIT 40.9 % (35.4-49); HEMOGLOBIN 13.2 GM/dL (11.7-16.9); MCH 30.1 pg (25.7-33.7); MCHC 32.4 g/dl (32.0-35.9); PLATELET COUNT 215 10^3/uL (134-434); RDW 14.5 % (11.9-15.9); WHITE BLOOD COUNT 10.7 K/mm3 (4.0-10.0)
[2022-01-15 16:28] LABS: CALCIUM 9.1 mg/dL (8.5-10.1)
[2022-01-15 16:29] LABS: BLOOD UREA NITROGEN 19.8 mg/dL (7-18)
[2022-01-15 16:33] LABS: CREATININE 0.8 mg/dL (0.55-1.3)
[2022-01-15 16:34] LABS: BILIRUBIN,TOTAL 0.4 mg/dL (0.2-1); TOT PROT 7.7 g/dl (6.4-8.2)
[2022-01-15] MEDS ORDERED: chlordiazePOXIDE HCL 25 MG CAPSULE PO PRN (16:49)
[2022-01-15] MEDS: chlordiazePOXIDE HCL 25 MG CAPSULE PO SCH ×2 (17:20→22:37)
[2022-01-15] MEDS: NICOTINE POLACRILEX 2 MG GUM BUC PRN ×2 (17:22→21:07)
[2022-01-15] MEDS: MELATONIN 5 MG TABLETS PO SCH (22:37)
[2022-01-15] MEDS: THIAMINE HCL 100 MG TABLET (FP) PO SCH (22:37)
[2022-01-16] MEDS: IBUPROFEN 600 MG TABLET (FP) PO PRN ×2 (05:20→17:29)
[2022-01-16] MEDS: chlordiazePOXIDE HCL 25 MG CAPSULE PO SCH ×4 (05:21→22:22)
[2022-01-16] MEDS: NICOTINE POLACRILEX 2 MG GUM BUC PRN ×5 (05:24→22:23)
[2022-01-16] MEDS: NICOTINE 10 MG CARTRIDGE (INHALER) IH PRN (06:39)
[2022-01-16] MEDS: amLODIPine BESYLATE 10 MG TABLET (FP) PO SCH (09:59)
[2022-01-16] MEDS: PRENATAL VITAMINS W/ FOLIC ACID TABLET (FP) PO SCH (09:59)
[2022-01-16] MEDS ORDERED: FLU VACC QS2022-23(6MOS UP)/PF 60 MCG/0.5 ML SYRINGE IM ONE (12:00)
[2022-01-16] MEDS ORDERED: INSULIN (NOVOLOG MIX 70/30) 100 UNITS/ML MDV SQ ONE (12:28)
[2022-01-16] MEDS: hydrOXYzine PAMOATE 25 MG CAPSULE (FP) PO PRN ×2 (13:25→17:29)
[2022-01-16] MEDS: METHOCARBAMOL 500 MG TABLET PO PRN (22:21)
[2022-01-16] MEDS: MELATONIN 5 MG TABLETS PO SCH (22:21)
[2022-01-16] MEDS: risperiDONE 2 MG TABLET PO SCH (22:21)
[2022-01-16] MEDS: THIAMINE HCL 100 MG TABLET (FP) PO SCH (22:22)
[2022-01-16] MEDS: DIVALPROEX SODIUM 500 MG TABLET E.C. PO SCH (22:22)
[2022-01-17] MEDS: NICOTINE 10 MG CARTRIDGE (INHALER) IH PRN ×3 (04:32→17:14)
[2022-01-17] MEDS: IBUPROFEN 600 MG TABLET (FP) PO PRN ×2 (05:10→17:12)
[2022-01-17] MEDS: chlordiazePOXIDE HCL 25 MG CAPSULE PO SCH ×4 (05:11→22:06)
[2022-01-17] MEDS: risperiDONE 1 MG TABLET PO SCH (10:05)
[2022-01-17] MEDS: amLODIPine BESYLATE 10 MG TABLET (FP) PO SCH (10:05)
[2022-01-17] MEDS: DIVALPROEX SODIUM 500 MG TABLET E.C. PO SCH ×2 (10:05→22:06)
[2022-01-17] MEDS: SERTRALINE HCL 50 MG TABLET (FP) PO SCH (10:05)
[2022-01-17] MEDS: PRENATAL VITAMINS W/ FOLIC ACID TABLET (FP) PO SCH (10:05)
[2022-01-17] MEDS: NICOTINE POLACRILEX 2 MG GUM BUC PRN ×5 (10:06→22:07)
[2022-01-17 12:51] LABS: EOS % 7.3 % (0-4.5); HEMATOCRIT 35.5 % (35.4-49); HEMOGLOBIN 12.1 GM/dL (11.7-16.9); LYMPH % 12.1 % (8-40); MCH 31.4 pg (25.7-33.7); MCHC 34.1 g/dl (32.0-35.9); MEAN CELL VOLUME 92.2 fl (80-96); MEAN PLT VOLUME 9.8 fl (7.5-11.1); MONO % 13.4 % (3.8-10.2); NEUT % 66.2 % (42.8-82.8); PLATELET COUNT 171 10^3/uL (134-434); RBC 3.86 M/mm3 (4.00-5.60); RDW 14.4 % (11.9-15.9); WHITE BLOOD COUNT 8.7 K/mm3 (4.0-10.0)
[2022-01-17] MEDS: MELATONIN 5 MG TABLETS PO SCH (22:06)
[2022-01-17] MEDS: risperiDONE 2 MG TABLET PO SCH (22:06)
[2022-01-17] MEDS: THIAMINE HCL 100 MG TABLET (FP) PO SCH (22:06)
[2022-01-18] MEDS ORDERED: chlordiazePOXIDE HCL 10 MG CAPSULE PO PRN
[2022-01-18] MEDS: NICOTINE 10 MG CARTRIDGE (INHALER) IH PRN ×3 (05:00→15:50)
[2022-01-18] MEDS: chlordiazePOXIDE HCL 10 MG CAPSULE PO SCH ×4 (05:45→22:04)
[2022-01-18] MEDS: IBUPROFEN 600 MG TABLET (FP) PO PRN ×2 (05:45→17:21)
[2022-01-18] MEDS: METHOCARBAMOL 500 MG TABLET PO PRN ×2 (05:47→22:04)
[2022-01-18] MEDS: risperiDONE 1 MG TABLET PO SCH (10:11)
[2022-01-18] MEDS: SERTRALINE HCL 50 MG TABLET (FP) PO SCH (10:11)
[2022-01-18] MEDS: DIVALPROEX SODIUM 500 MG TABLET E.C. PO SCH ×2 (10:11→22:04)
[2022-01-18] MEDS: PRENATAL VITAMINS W/ FOLIC ACID TABLET (FP) PO SCH (10:11)
[2022-01-18] MEDS: amLODIPine BESYLATE 10 MG TABLET (FP) PO SCH (10:11)
[2022-01-18] MEDS: NICOTINE POLACRILEX 2 MG GUM BUC PRN ×3 (12:16→22:05)
[2022-01-18] MEDS: hydrOXYzine PAMOATE 25 MG CAPSULE (FP) PO PRN (22:04)
[2022-01-18] MEDS: risperiDONE 2 MG TABLET PO SCH (22:04)
[2022-01-18] MEDS: THIAMINE HCL 100 MG TABLET (FP) PO SCH (22:05)
[2022-01-18] MEDS: MELATONIN 5 MG TABLETS PO SCH (22:05)
[2022-01-19] MEDS: NICOTINE POLACRILEX 2 MG GUM BUC PRN ×7 (01:27→21:55)
[2022-01-19] MEDS: chlordiazePOXIDE HCL 10 MG CAPSULE PO SCH ×2 (05:22→17:17)
[2022-01-19] MEDS: risperiDONE 1 MG TABLET PO SCH (10:04)
[2022-01-19] MEDS: IBUPROFEN 600 MG TABLET (FP) PO PRN (10:04)
[2022-01-19] MEDS: PRENATAL VITAMINS W/ FOLIC ACID TABLET (FP) PO SCH (10:04)
[2022-01-19] MEDS: SERTRALINE HCL 50 MG TABLET (FP) PO SCH (10:04)
[2022-01-19] MEDS: METHOCARBAMOL 500 MG TABLET PO PRN (10:04)
[2022-01-19] MEDS: amLODIPine BESYLATE 10 MG TABLET (FP) PO SCH (10:04)
[2022-01-19] MEDS: DIVALPROEX SODIUM 500 MG TABLET E.C. PO SCH ×2 (10:04→21:52)
[2022-01-19] MEDS: NICOTINE 10 MG CARTRIDGE (INHALER) IH PRN ×2 (10:05→20:58)
[2022-01-19 12:33] VITALS: RESP 18
[2022-01-19] MEDS: GABAPENTIN 300 MG CAPSULE PO SCH ×2 (13:05→21:52)
[2022-01-19] MEDS: MELATONIN 5 MG TABLETS PO SCH (21:52)
[2022-01-19] MEDS: risperiDONE 2 MG TABLET PO SCH (21:52)
[2022-01-19] MEDS: THIAMINE HCL 100 MG TABLET (FP) PO SCH (21:53)
[2022-01-19 23:17] VITALS: BP 147/98; PULSE 98; TEMP 97.4
[2022-01-20] MEDS ORDERED: chlordiazePOXIDE HCL 10 MG CAPSULE PO ONE (05:00)
== END 2022-01-20 01:54 | disposition left against medical advice (07) | DRG 770 ==
LOC: YASAS 10:49 → Y3N 13:31
PROVIDERS: ADMIT Allergy & Immunology; ATTEND Surgery
PROC: HZ2ZZZZ Detoxification Services for Substance Abuse Treatment (ICD-10-PCS; principal; 2022-01-15)
DX: F10.230 Alcohol dependence with withdrawal, uncomplicated (principal); F12.20 Cannabis dependence, uncomplicated; F17.210 Nicotine dependence, cigarettes, uncomplicated; F25.0 Schizoaffective disorder, bipolar type; G62.9 Polyneuropathy, unspecified; I10 Essential (primary) hypertension; M54.50 Low back pain, unspecified; G89.29 Other chronic pain; Z86.11 Personal history of tuberculosis; Z91.14 Patient's other noncompliance with medication regimen; Z56.0 Unemployment, unspecified
CPT/HCPCS: 36415; 80053; 82962; 84520; 85025; 85027; 86780; C9803-CS; G0008; Q2036; U0003; U0005

== ENCOUNTER 2022-01-30 09:41 | Inpatient (IN) | payer OTHER ==
[2022-01-30 10:35] VITALS: BMI 27.8
[2022-01-30] MEDS ORDERED: BISMUTH SUBSALICYLATE 262 MG/15 ML BTL PO PRN (12:16)
[2022-01-30] MEDS ORDERED: chlordiazePOXIDE HCL 25 MG CAPSULE PO PRN (12:16)
[2022-01-30] MEDS ORDERED: NICOTINE 21 MG/24 HOURS TOPICAL PATCH TD PRN (12:16)
[2022-01-30] MEDS ORDERED: DICYCLOMINE HCL 10 MG CAPSULE PO PRN (12:16)
[2022-01-30] MEDS ORDERED: IBUPROFEN 400 MG TABLET (FP) PO PRN (12:16)
[2022-01-30] MEDS ORDERED: MAG HYDROX/AL HYDROX/SIMETH 30 ML UNIT-DOSE CUP PO PRN (12:16)
[2022-01-30] MEDS ORDERED: ONDANSETRON *ODT* 4 MG TABLET SL PRN (12:16)
[2022-01-30] MEDS ORDERED: MAGNESIUM HYDROX 2400MG/30ML ORAL SUSPENSION 30 ML CUP PO PRN (12:16)
[2022-01-30] MEDS ORDERED: IBUPROFEN 600 MG TABLET (FP) PO PRN (12:16)
[2022-01-30] MEDS ORDERED: METHOCARBAMOL 500 MG TABLET PO PRN (12:16)
[2022-01-30] MEDS ORDERED: ACETAMINOPHEN 325 MG TABLET (FP) PO PRN ×2 (12:16)
[2022-01-30] MEDS ORDERED: LOPERAMIDE HCL 2 MG CAPSULE PO PRN (12:16)
[2022-01-30] MEDS ORDERED: hydrOXYzine PAMOATE 25 MG CAPSULE (FP) PO PRN (12:16)
[2022-01-30] MEDS ORDERED: BENZOCAINE/MENTHOL (CHLORASEPTIC ) LOZENGE MM PRN (12:16)
[2022-01-30] MEDS ORDERED: POLYETHYLENE GLYCOL (HEALTHYLAX) 3350 17 GM PACKET PO PRN (12:16)
[2022-01-30] MEDS: NICOTINE 10 MG CARTRIDGE (INHALER) IH PRN (13:31)
[2022-01-30] MEDS: NICOTINE POLACRILEX 4 MG GUM BUC PRN ×2 (13:31→15:50)
[2022-01-30] MEDS: chlordiazePOXIDE HCL 25 MG CAPSULE PO SCH ×2 (17:52→22:43)
[2022-01-30] MEDS ORDERED: THIAMINE HCL 100 MG TABLET (FP) PO SCH (22:00)
[2022-01-30] MEDS ORDERED: MELATONIN 5 MG TABLETS PO SCH (22:00)
[2022-01-31] MEDS: chlordiazePOXIDE HCL 25 MG CAPSULE PO SCH ×3 (05:56→18:19)
[2022-01-31] MEDS ORDERED: PRENATAL VITAMINS W/ FOLIC ACID TABLET (FP) PO SCH (10:00)
[2022-01-31] MEDS: NICOTINE POLACRILEX 4 MG GUM BUC PRN (11:08)
[2022-01-31] MEDS: NICOTINE 10 MG CARTRIDGE (INHALER) IH PRN ×2 (11:08→18:55)
[2022-01-31] MEDS ORDERED: DIVALPROEX SODIUM 500 MG TABLET E.C. PO SCH (12:15)
[2022-01-31] MEDS ORDERED: SERTRALINE HCL 50 MG TABLET (FP) PO SCH (12:15)
[2022-01-31] MEDS ORDERED: risperiDONE 1 MG TABLET PO SCH (12:15)
[2022-01-31] MEDS ORDERED: GABAPENTIN 300 MG CAPSULE PO SCH (14:00)
[2022-01-31 17:40] VITALS: BP 129/70; PULSE 94; RESP 17; TEMP 97.4
[2022-01-31] MEDS ORDERED: risperiDONE 2 MG TABLET PO SCH (22:00)
[2022-02-01] MEDS ORDERED: chlordiazePOXIDE HCL 25 MG CAPSULE PO SCH (05:00)
[2022-02-02] MEDS ORDERED: chlordiazePOXIDE HCL 10 MG CAPSULE PO PRN
[2022-02-02] MEDS ORDERED: chlordiazePOXIDE HCL 10 MG CAPSULE PO SCH (05:00)
[2022-02-03] MEDS ORDERED: chlordiazePOXIDE HCL 10 MG CAPSULE PO SCH (05:00)
[2022-02-04] MEDS ORDERED: chlordiazePOXIDE HCL 10 MG CAPSULE PO ONE (05:00)
== END 2022-01-31 21:01 | disposition left against medical advice (07) | DRG 770 ==
LOC: YASAS 09:41 → Y6N 13:08
PROVIDERS: ADMIT Allergy & Immunology; ATTEND Surgery
PROC: HZ2ZZZZ Detoxification Services for Substance Abuse Treatment (ICD-10-PCS; principal; 2022-01-30)
DX: F10.230 Alcohol dependence with withdrawal, uncomplicated (principal); F14.20 Cocaine dependence, uncomplicated; F12.20 Cannabis dependence, uncomplicated; F17.210 Nicotine dependence, cigarettes, uncomplicated; F25.0 Schizoaffective disorder, bipolar type; F19.282 Other psychoactive substance dependence with psychoactive substance-induced sleep disorder; F19.24 Other psychoactive substance dependence with psychoactive substance-induced mood disorder; U07.1 COVID-19; I10 Essential (primary) hypertension; M54.50 Low back pain, unspecified; G89.29 Other chronic pain; Z86.11 Personal history of tuberculosis; Z86.19 Personal history of other infectious and parasitic diseases; Z59.00 Homelessness unspecified; Z56.0 Unemployment, unspecified
CPT/HCPCS: 87811; C9803-CS; J2794; U0003; U0005

== ENCOUNTER 2022-09-25 12:34 | Inpatient (IN) | payer OTHER ==
[2022-09-25 14:13] VITALS: BMI 26.6
[2022-09-25] MEDS ORDERED: BISMUTH SUBSALICYLATE 262 MG/15 ML BTL PO PRN (14:40)
[2022-09-25] MEDS ORDERED: BENZOCAINE/MENTHOL (CHLORASEPTIC ) LOZENGE MM PRN (14:40)
[2022-09-25] MEDS ORDERED: guaiFENesin 600 MG TABLET.ER (FP) PO PRN (14:40)
[2022-09-25] MEDS ORDERED: BENZONATATE 200 MG CAPSULE PO PRN (14:40)
[2022-09-25] MEDS ORDERED: MAGNESIUM HYDROX 2400MG/30ML ORAL SUSPENSION 30 ML CUP PO PRN (14:40)
[2022-09-25] MEDS ORDERED: ONDANSETRON *ODT* 4 MG TABLET SL PRN (14:40)
[2022-09-25] MEDS ORDERED: POLYETHYLENE GLYCOL (HEALTHYLAX) 3350 17 GM PACKET PO PRN (14:40)
[2022-09-25] MEDS ORDERED: P-EPHED 60MG/TRIPROLIDI 2.5MG TABLET PO PRN (14:40)
[2022-09-25] MEDS ORDERED: DICYCLOMINE HCL 10 MG CAPSULE PO PRN (14:40)
[2022-09-25] MEDS ORDERED: LOPERAMIDE HCL 2 MG CAPSULE PO PRN (14:40)
[2022-09-25] MEDS ORDERED: MAG HYDROX/AL HYDROX/SIMETH 30 ML UNIT-DOSE CUP PO PRN (14:40)
[2022-09-25] MEDS ORDERED: ACETAMINOPHEN 325 MG TABLET (FP) PO PRN (14:40)
[2022-09-25] MEDS ORDERED: NICOTINE POLACRILEX 2 MG GUM ONE (17:49)
[2022-09-25] MEDS: NICOTINE POLACRILEX 2 MG GUM BUC PRN ×3 (17:50→22:07)
[2022-09-25] MEDS: MELATONIN 5 MG TABLETS PO SCH (22:05)
[2022-09-25] MEDS: THIAMINE HCL 100 MG TABLET (FP) PO SCH (22:05)
[2022-09-25] MEDS: IBUPROFEN 400 MG TABLET (FP) PO PRN (22:06)
[2022-09-26] MEDS: IBUPROFEN 600 MG TABLET (FP) PO PRN (03:49)
[2022-09-26] MEDS: NICOTINE POLACRILEX 2 MG GUM BUC PRN ×3 (05:37→16:47)
[2022-09-26] MEDS ORDERED: chlordiazePOXIDE HCL 25 MG CAPSULE PO PRN (09:10)
[2022-09-26] MEDS: risperiDONE 2 MG TABLET PO SCH ×2 (09:30→22:49)
[2022-09-26] MEDS: SERTRALINE HCL 50 MG TABLET (FP) PO SCH (09:30)
[2022-09-26] MEDS: DIVALPROEX SODIUM 500 MG TABLET E.C. PO SCH ×2 (09:30→22:49)
[2022-09-26] MEDS: PRENATAL VITAMINS W/ FOLIC ACID TABLET (FP) PO SCH (09:30)
[2022-09-26] MEDS: amLODIPine BESYLATE 10 MG TABLET (FP) PO SCH (09:32)
[2022-09-26] MEDS: HYDROCHLOROTHIAZIDE 25 MG TABLET (FP) PO SCH (09:32)
[2022-09-26] MEDS: chlordiazePOXIDE HCL 25 MG CAPSULE PO SCH ×3 (10:26→22:49)
[2022-09-26 10:36] LABS: POTASSIUM 4.3 mmol/L (3.5-5.1)
[2022-09-26 10:40] LABS: HEMATOCRIT 34.7 % (35.4-49); HEMOGLOBIN 12.1 GM/dL (11.7-16.9); MCH 30.6 pg (25.7-33.7); MCHC 34.7 g/dl (32.0-35.9); MEAN CELL VOLUME 88.2 fl (80-96); MEAN PLT VOLUME 8.9 fl (7.5-11.1); PLATELET COUNT 232 10^3/uL (134-434); RBC 3.94 M/mm3 (4.00-5.60); RDW 16.7 % (11.9-15.9); WHITE BLOOD COUNT 10.4 K/mm3 (4.0-10.0)
[2022-09-26 10:53] LABS: ALBUMIN 3.6 g/dl (3.4-5.0)
[2022-09-26 10:54] LABS: BLOOD UREA NITROGEN 13.3 mg/dL (7-18)
[2022-09-26 10:56] LABS: CREATININE 0.9 mg/dL (0.55-1.3)
[2022-09-26 10:57] LABS: BILIRUBIN,TOTAL 0.7 mg/dL (0.2-1); TOT PROT 7.2 g/dl (6.4-8.2)
[2022-09-26 10:58] LABS: CALCIUM 8.7 mg/dL (8.5-10.1)
[2022-09-26] MEDS ORDERED: cloNIDine HCL 0.1 MG TABLET PO ONE (12:35)
[2022-09-26] MEDS: MELATONIN 5 MG TABLETS PO SCH (22:49)
[2022-09-26] MEDS: THIAMINE HCL 100 MG TABLET (FP) PO SCH (22:49)
[2022-09-27] MEDS: chlordiazePOXIDE HCL 25 MG CAPSULE PO SCH ×4 (05:49→22:14)
[2022-09-27] MEDS: IBUPROFEN 400 MG TABLET (FP) PO PRN (05:50)
[2022-09-27] MEDS: NICOTINE POLACRILEX 2 MG GUM BUC PRN ×4 (06:43→19:47)
[2022-09-27] MEDS: SERTRALINE HCL 50 MG TABLET (FP) PO SCH (10:05)
[2022-09-27] MEDS: amLODIPine BESYLATE 10 MG TABLET (FP) PO SCH (10:06)
[2022-09-27] MEDS: risperiDONE 2 MG TABLET PO SCH ×2 (10:06→22:14)
[2022-09-27] MEDS: DIVALPROEX SODIUM 500 MG TABLET E.C. PO SCH ×2 (10:06→22:14)
[2022-09-27] MEDS: HYDROCHLOROTHIAZIDE 25 MG TABLET (FP) PO SCH (10:06)
[2022-09-27] MEDS: PRENATAL VITAMINS W/ FOLIC ACID TABLET (FP) PO SCH (10:07)
[2022-09-27 21:05] VITALS: PULSE 95
[2022-09-27] MEDS: MELATONIN 5 MG TABLETS PO SCH (22:12)
[2022-09-27] MEDS: THIAMINE HCL 100 MG TABLET (FP) PO SCH (22:12)
[2022-09-28] MEDS: NICOTINE POLACRILEX 2 MG GUM BUC PRN (04:29)
[2022-09-28] MEDS ORDERED: chlordiazePOXIDE HCL 25 MG CAPSULE PO SCH (05:00)
[2022-09-28] MEDS: IBUPROFEN 600 MG TABLET (FP) PO PRN (06:14)
[2022-09-28 06:22] VITALS: BP 126/86; RESP 16; TEMP 97.5
[2022-09-29] MEDS ORDERED: chlordiazePOXIDE HCL 10 MG CAPSULE PO PRN
[2022-09-29] MEDS ORDERED: chlordiazePOXIDE HCL 10 MG CAPSULE PO SCH (05:00)
[2022-09-30] MEDS ORDERED: chlordiazePOXIDE HCL 10 MG CAPSULE PO SCH (05:00)
[2022-10-01] MEDS ORDERED: chlordiazePOXIDE HCL 10 MG CAPSULE PO ONE (05:00)
== END 2022-09-28 08:50 | disposition left against medical advice (07) | DRG 770 ==
LOC: YASAS 12:34 → Y6N 15:07
PROVIDERS: ADMIT Allergy & Immunology; ATTEND Surgery
PROC: HZ2ZZZZ Detoxification Services for Substance Abuse Treatment (ICD-10-PCS; principal; 2022-09-25)
DX: F10.220 Alcohol dependence with intoxication, uncomplicated (principal); F10.282 Alcohol dependence with alcohol-induced sleep disorder; F10.280 Alcohol dependence with alcohol-induced anxiety disorder; F14.20 Cocaine dependence, uncomplicated; F12.20 Cannabis dependence, uncomplicated; F17.210 Nicotine dependence, cigarettes, uncomplicated; F25.0 Schizoaffective disorder, bipolar type; I10 Essential (primary) hypertension; M54.50 Low back pain, unspecified; G89.29 Other chronic pain; Z91.013 Allergy to seafood; Z86.11 Personal history of tuberculosis; Z86.19 Personal history of other infectious and parasitic diseases; Z56.0 Unemployment, unspecified; Z59.01 Sheltered homelessness
CPT/HCPCS: 36415; 80053; 85027; 86780; 87635; 87811

== ENCOUNTER 2023-09-08 09:34 | Inpatient (IN) | payer OTHER ==
[2023-09-08 10:43] VITALS: BMI 27.6
[2023-09-08] MEDS ORDERED: ONDANSETRON *ODT* 4 MG TABLET SL PRN (13:52)
[2023-09-08] MEDS ORDERED: guaiFENesin 600 MG TABLET.ER (FP) PO PRN (13:52)
[2023-09-08] MEDS ORDERED: MAG HYDROX/AL HYDROX/SIMETH 30 ML UNIT-DOSE CUP PO PRN (13:52)
[2023-09-08] MEDS ORDERED: LOPERAMIDE HCL 2 MG CAPSULE PO PRN (13:52)
[2023-09-08] MEDS ORDERED: MAGNESIUM HYDROX 2400MG/30ML ORAL SUSPENSION 30 ML CUP PO PRN (13:52)
[2023-09-08] MEDS ORDERED: IBUPROFEN 400 MG TABLET (FP) PO PRN (13:52)
[2023-09-08] MEDS ORDERED: DICYCLOMINE HCL 10 MG CAPSULE PO PRN (13:52)
[2023-09-08] MEDS ORDERED: NALOXONE HCL 0.4 MG/ML VIAL IM PRN (13:52)
[2023-09-08] MEDS ORDERED: BENZONATATE 200 MG CAPSULE PO PRN (13:52)
[2023-09-08] MEDS ORDERED: NALOXONE (NARCAN) HCL 4 MG/0.1 ML SPRAY NS PRN (13:52)
[2023-09-08] MEDS ORDERED: BENZOCAINE/MENTHOL (CHLORASEPTIC ) LOZENGE MM PRN (13:52)
[2023-09-08] MEDS ORDERED: POLYETHYLENE GLYCOL (HEALTHYLAX) 3350 17 GM PACKET PO PRN (13:52)
[2023-09-08] MEDS: HYDROCHLOROTHIAZIDE 25 MG TABLET (FP) PO SCH (14:32)
[2023-09-08] MEDS: GABAPENTIN 300 MG CAPSULE PO SCH (14:32)
[2023-09-08] MEDS: chlordiazePOXIDE HCL 25 MG CAPSULE PO PRN (14:32)
[2023-09-08] MEDS: hydrOXYzine PAMOATE 25 MG CAPSULE (FP) PO PRN (14:32)
[2023-09-08] MEDS: NICOTINE POLACRILEX 4 MG GUM BUC PRN (14:33)
[2023-09-08] MEDS: BACITRACIN 0.9 GM PACKET TP SCH (14:52)
[2023-09-08] MEDS: chlordiazePOXIDE HCL 25 MG CAPSULE PO SCH (16:48)
[2023-09-08] MEDS: amLODIPine BESYLATE 10 MG TABLET (FP) PO ONE (17:11)
[2023-09-08] MEDS: cloNIDine HCL 0.1 MG TABLET PO ONE ×2 (19:08→22:54)
[2023-09-08] MEDS: MELATONIN 5 MG TABLETS PO SCH (22:16)
[2023-09-08] MEDS: THIAMINE 100 MG TABLET PO SCH (22:17)
[2023-09-08] MEDS: IBUPROFEN 600 MG TABLET (FP) PO PRN (22:17)
[2023-09-08] MEDS: METHOCARBAMOL 500 MG TABLET PO PRN (22:17)
[2023-09-09] MEDS: amLODIPine BESYLATE 10 MG TABLET (FP) PO SCH (10:00)
[2023-09-09] MEDS: PRENATAL VITAMINS W/ FOLIC ACID TABLET (FP) PO SCH (10:00)
[2023-09-09 11:46] LABS: HEMATOCRIT 35.6 % (35.4-49); MCH 29.9 pg (25.7-33.7); MCHC 33.7 g/dl (32.0-35.9); MEAN CELL VOLUME 88.7 fl (80-96); MEAN PLT VOLUME 8.7 fl (7.5-11.1); PLATELET COUNT 196 10^3/uL (134-434); RBC 4.01 M/mm3 (4.00-5.60); RDW 15.5 % (11.9-15.9); WHITE BLOOD COUNT 6.1 K/mm3 (4.0-10.0)
[2023-09-09 11:53] LABS: CHLORIDE 99 mmol/L (98-107); POTASSIUM 3.3 mmol/L (3.5-5.1); SODIUM 137 mmol/L (136-145)
[2023-09-09 12:00] LABS: ALBUMIN 3.9 g/dl (3.4-5.0); ANION GAP 9 mmol/L (4-13); CALCIUM 9.1 mg/dL (8.5-10.1); CO2 29 mmol/L (21-32); GLUCOSE,RANDOM 120 mg/dL (74-106)
[2023-09-09 12:03] LABS: CREATININE 0.8 mg/dL (0.55-1.3); SGOT/AST 48 U/L (15-37); SGPT/ALT 36 U/L (13-61)
[2023-09-09 12:04] LABS: TOT PROT 7.7 g/dl (6.4-8.2)
[2023-09-09 12:06] LABS: ALK PHOS 110 U/L (45-117)
[2023-09-09 12:15] LABS: BILIRUBIN,TOTAL 1.6 mg/dL (0.2-1)
[2023-09-09] MEDS: cloNIDine HCL 0.1 MG TABLET PO ONE (12:47)
[2023-09-09] MEDS: risperiDONE 1 MG TABLET PO ONE (14:41)
[2023-09-09] MEDS: risperiDONE 1 MG TABLET PO SCH ×2 (14:42→23:21)
[2023-09-09] MEDS: SERTRALINE HCL 50 MG TABLET (FP) PO SCH (14:43)
[2023-09-09] MEDS ORDERED: risperiDONE 1 MG TABLET PO SCH (22:32)
[2023-09-09] MEDS: risperiDONE 2 MG TABLET PO SCH (23:22)
[2023-09-10] MEDS: chlordiazePOXIDE HCL 25 MG CAPSULE PO SCH (05:14)
[2023-09-10] MEDS: risperiDONE 1 MG TABLET PO SCH (09:11)
[2023-09-10] MEDS: SERTRALINE HCL 50 MG TABLET (FP) PO SCH (09:11)
[2023-09-10] MEDS: BISMUTH SUBSALICYLATE 524 MG/30 ML PO PRN (10:08)
[2023-09-10] MEDS ORDERED: risperiDONE 1 MG TABLET PO SCH (14:23)
[2023-09-11] MEDS ORDERED: chlordiazePOXIDE HCL 10 MG CAPSULE PO PRN
[2023-09-11] MEDS: chlordiazePOXIDE HCL 10 MG CAPSULE PO SCH (05:34)
[2023-09-11] MEDS: AMOX TR/POT CLAV 500MG/125MG TABLETS (FP) PO SCH (11:20)
[2023-09-11] MEDS: ACETAMINOPHEN 325 MG TABLET (FP) PO PRN (17:04)
[2023-09-12] MEDS ORDERED: BENZOCAINE 20 % GEL TUBE MM PRN (01:57)
[2023-09-12] MEDS: chlordiazePOXIDE HCL 10 MG CAPSULE PO SCH (05:24)
[2023-09-13] MEDS: chlordiazePOXIDE HCL 10 MG CAPSULE PO ONE (05:30)
[2023-09-13 06:27] VITALS: BP 141/93; PULSE 88; RESP 17; TEMP 97.7
== END 2023-09-13 09:02 | disposition other institution (70) | DRG 774 ==
LOC: YASAS 09:34 → Y3N 14:08
PROVIDERS: ADMIT Allergy & Immunology; ATTEND Family Medicine Addiction Medicine
PROC: HZ2ZZZZ Detoxification Services for Substance Abuse Treatment (ICD-10-PCS; principal; 2023-09-08)
DX: F10.230 Alcohol dependence with withdrawal, uncomplicated (principal); F14.20 Cocaine dependence, uncomplicated; F12.20 Cannabis dependence, uncomplicated; F25.9 Schizoaffective disorder, unspecified; I10 Essential (primary) hypertension; K08.89 Other specified disorders of teeth and supporting structures; M54.50 Low back pain, unspecified; G89.29 Other chronic pain; Z86.11 Personal history of tuberculosis; Z86.19 Personal history of other infectious and parasitic diseases; Z87.891 Personal history of nicotine dependence; Z56.0 Unemployment, unspecified; Z59.00 Homelessness unspecified; S80.212D Abrasion, left knee, subsequent encounter; S80.211D Abrasion, right knee, subsequent encounter; W19.XXXD Unspecified fall, subsequent encounter
CPT/HCPCS: 36415; 80053; 80305; 80307; 85027; 86780; 93005; 93010

== ENCOUNTER 2024-10-25 13:40 | Inpatient (IN) | payer OTHER ==
[2024-10-25 14:18] VITALS: BMI 25.0
[2024-10-25] MEDS ORDERED: hydrOXYzine PAMOATE 25 MG CAPSULE (FP) PO PRN (14:54)
[2024-10-25] MEDS ORDERED: BENZONATATE 200 MG CAPSULE PO PRN (14:54)
[2024-10-25] MEDS ORDERED: NALOXONE (NARCAN) HCL 4 MG/0.1 ML SPRAY NS PRN (14:54)
[2024-10-25] MEDS ORDERED: IBUPROFEN 400 MG TABLET (FP) PO PRN (14:54)
[2024-10-25] MEDS ORDERED: BENZOCAINE/MENTHOL (CHLORASEPTIC ) LOZENGE MM PRN (14:54)
[2024-10-25] MEDS ORDERED: NICOTINE POLACRILEX 2 MG LOZENGE BC PRN (14:54)
[2024-10-25] MEDS ORDERED: MAGNESIUM HYDROX 2400MG/30ML ORAL SUSPENSION 30 ML CUP PO PRN (14:54)
[2024-10-25] MEDS ORDERED: MAG HYDROX/AL HYDROX/SIMETH 30 ML UNIT-DOSE CUP PO PRN (14:54)
[2024-10-25] MEDS ORDERED: POLYETHYLENE GLYCOL (HEALTHYLAX) 3350 17 GM PACKET PO PRN (14:54)
[2024-10-25] MEDS ORDERED: BISMUTH SUBSALICYLATE 524 MG/30 ML PO PRN (14:54)
[2024-10-25] MEDS ORDERED: LOPERAMIDE HCL 2 MG CAPSULE PO PRN (14:54)
[2024-10-25] MEDS ORDERED: guaiFENesin 600 MG TABLET.ER (FP) PO PRN (14:54)
[2024-10-25] MEDS ORDERED: ONDANSETRON *ODT* 4 MG TABLET SL PRN (14:54)
[2024-10-25] MEDS ORDERED: DICYCLOMINE HCL 10 MG CAPSULE PO PRN (14:54)
[2024-10-25] MEDS: IBUPROFEN 600 MG TABLET (FP) PO PRN (17:30)
[2024-10-25] MEDS: NICOTINE POLACRILEX 2 MG GUM BUC PRN (17:30)
[2024-10-25] MEDS: MELATONIN 5 MG TABLETS PO SCH (22:13)
[2024-10-25] MEDS: ACETAMINOPHEN 325 MG TABLET (FP) PO PRN (22:13)
[2024-10-25] MEDS: THIAMINE 100 MG TABLET PO SCH (22:13)
[2024-10-25] MEDS: levETIRAcetam 500 MG TABLET (FP) PO SCH (22:13)
[2024-10-26 09:48] LABS: MCHC 32.2 g/dl (32.3-36.5); MEAN CELL VOLUME 92.3 fl (79.0-92.2); MEAN PLT VOLUME 11.5 fl (9.4-12.4); RDW 15.0 % (12.2-16.4)
[2024-10-26] MEDS: PRENATAL VITAMINS W/ FOLIC ACID TABLET (FP) PO SCH (10:21)
[2024-10-26] MEDS: METHOCARBAMOL 500 MG TABLET PO PRN (10:22)
[2024-10-26 10:34] LABS: GLUCOSE,RANDOM 88 mg/dL (74-106); TOT PROT 7.0 g/dl (6.4-8.2)
[2024-10-26 10:35] LABS: CO2 23 mmol/L (21-32)
[2024-10-26 10:37] LABS: ALK PHOS 124 U/L (40-150)
[2024-10-26 10:39] LABS: SGOT/AST 36 U/L (5-34); SGPT/ALT 36 U/L (0-55)
[2024-10-26 10:40] LABS: CREATININE 0.68 mg/dL (0.55-1.3)
[2024-10-27 05:46] VITALS: BP 150/99; PULSE 86; RESP 16; TEMP 97.3
[2024-10-27] MEDS ORDERED: SERTRALINE HCL 50 MG TABLET (FP) PO SCH ×2 (10:00)
== END 2024-10-27 06:30 | disposition left against medical advice (07) | DRG 770 ==
LOC: YASAS 13:40 → Y3N 16:38
PROVIDERS: ADMIT Neuromusculoskeletal Medicine & OMM; ATTEND Allergy & Immunology
PROC: HZ2ZZZZ Detoxification Services for Substance Abuse Treatment (ICD-10-PCS; principal; 2024-10-25)
DX: F10.230 Alcohol dependence with withdrawal, uncomplicated (principal); F14.20 Cocaine dependence, uncomplicated; F17.210 Nicotine dependence, cigarettes, uncomplicated; F25.1 Schizoaffective disorder, depressive type; I10 Essential (primary) hypertension; B18.2 Chronic viral hepatitis C; M54.50 Low back pain, unspecified; G89.29 Other chronic pain; Z86.11 Personal history of tuberculosis; Z91.148 Patient's other noncompliance with medication regimen for other reason
CPT/HCPCS: 36415; 80053; 80307; 85027; 86780